=== PATIENT | female | born 1955 | race Caucasian/White ===

== ENCOUNTER 2024-11-11 10:58 | Emergency (ER) | payer MEDICARE, SELFPAY ==
[2024-11-11 11:03] VITALS: BP 177/85
--- NOTE | 2024-11-11 11:46 | ED.GENMED ---
History of Present Illness
General
Chief Complaint: Numbness
Source: patient
Exam Limitations: none
Time Seen by Provider: 11/11/24 11:38
History of Present Illness
History of Present Illness:
69-year-old female woke this morning feeling woozy. She typically feels woozy when she wakes up but was slightly worse. She then put her pulse ox on her finger and it had a inaccurate reading which showing unusual waveforms. This was followed by
tingling to the left hand. No chest pain no unusual palpitations or heart racing no syncope no headache or other neurologic symptoms. Currently at baseline.
Past History
Past History
ED Past Medical History: HTN, NIDDM, Other (Oxygen dependent) and Other (PMR)
ED Past Surgical History: Orthopedic and Other (Parathyroidectomy)
Review of Systems
Review of Systems
All Other Systems: Not applicable
Constitutional: Denies fever
Cardiac: Denies chest pain or syncope
ABD/GI: Reports no symptoms
Phy Exam
Physical Exam
Physical Exam:
GENERAL: Alert and oriented in no apparent distress
EYE: Orbits normal.
NECK: Supple
CARDIAC: Regular rate and rhythm without any obvious murmurs.
LUNGS: Clear breath sounds,normal
ABDOMEN: Soft, without focal tenderness or distention
NEUROLOGICAL: Alert and oriented , grossly non-focal. Upper extremity strength normal. Billing Department Supervisor normal. Light touch intact.
SKIN: Warm and dry, no rash or lesion, no discoloration, skin intact.
MUSCULOSKELETAL: No edema,no deformity.Good color. Good capillary refill. Good distal pulses.
PSYCH: Normal and appropriate interaction.
Course
Orders/Labs/Results
Orders:
Orders
11/11/24 11:45
IV Insert/Care/Rem.- Treatment PRN
Pulse Ox/cont/shift [RESP] Stat
Quantity: 1
11/11/24 11:46
Electrocardiogram (*1) Stat
Reason for Study: Other
Other Reason for Exam: chest pain
Cardiac Monitoring- Treatment ONCE
EKG- Treatment ONCE
CR Chest - 2 Views Urgent
Comment:
Reason For Exam: lightheaded. arm numbness
11/11/24 12:16
Basic Metabolic Panel Urgent
Complete Blood Count/With Diff Urgent
Troponin I Urgent
11/11/24 13:35
EKG- Treatment ONCE
11/11/24 15:00
Electrocardiogram (*1) Stat
Reason for Study: Other
Other Reason for Exam: chest pain
11/11/24 15:21
Troponin I Urgent
Abnormal Lab Results
11/11/24
12:16
RDW 14.8 H %
(11.5-14.5)
Absolute Neuts (auto) 6.6 H 10^3/uL
(1.4-6.5)
Absolute Monos (auto) 0.7 H 10^3/uL
(0.1-0.6)
Lymphocytes % 14.7 L %
(20.5-51.1)
BUN 22 H mg/dl
(7-17)
Glucose 108 H mg/dl
(70-99)
11/11/24 12:16
11/11/24 12:16
Vital Signs
Initial and Last Documented VS:
Initial Vital Signs
Temp Pulse Resp BP Pulse Ox
98.5 F 78 16 177/85 98
11/11/24 11:03 11/11/24 11:03 11/11/24 11:03 11/11/24 11:03 11/11/24 11:03
Last Documented Vital Signs
Temp Pulse Resp BP Pulse Ox
98.5 F 98 24 126/65 98
11/11/24 11:03 11/11/24 15:45 11/11/24 15:45 11/11/24 16:00 11/11/24 16:15
MDM/Problems Addressed
Differential Diagnosis Includes:
Patient is neurologically stable. Not describing obvious cardiac issues. I suspect her pulse ox was not picking up based on the an accurate waveform. Her exam is at baseline she is asymptomatic. Will check cardiac testing for completeness.
Nothing to support acute neurologic issue
*Radiology
Radiology exam reviewed: radiology read reviewed (Bibasilar scarring)
*Pulse Oximetry
Patient hypoxic: no
*Critical Care Note
Total Time (30-74mins, 75-104mins- exclusive of procedures): Not Applicable
Data Reviewed
Review of Other/Old Records Reveals: Other (Previous echo reviewed and stable)
Update Note
Update Note:
Repeat EKG normal sinus rhythm rate of 71. Poor R wave progression nonspecific changes unchanged EKG. Repeat troponin negative. Patient has remained asymptomatic. Discharged to follow-up
ED Attending Note
-
Portions of this chart may have been created with voice recognition software.� Occasional wrong word or��sound alike� substitutions may have occurred due to the inherent limitations of voice recognition software.
Discharge Plan
Departure
Patient Disposition: Home (Routine Discharge)
Date of Disposition: 11/11/24
Time of Disposition: 16:22
Patient with high blood pressure during this ER visit?: Yes
Discharge Problem:
Transient arm paresthesias, Transient pulse ox issues
Instructions: Paresthesia (DC), BLOOD PRESSURE
Referrals:
Braeden Amaral DO [Family Provider] - Follow up in 2-3 days
Activity Restrictions/Additional Instructions:
Return with any chest pain new shortness of breath fever cough or any other concerning symptoms
Interventions
Interventions:
*Risk Screen - Suicide Last Done: 11/11/24 11:03
*General Assessment Last Done: 11/11/24 14:00
*Neglect/Abuse Screening Last Done: 11/11/24 11:03
*ED- Fall Risk Assessment Last Done: 11/11/24 14:00
ED- Neurological Assessment Last Done: 11/11/24 12:16
Discharge Date and Time
Print Language: GEORGIAN
[2024-11-11 12:15] VITALS: BP 148/70
[2024-11-11 12:16] VITALS: BMI 38.9
[2024-11-11 12:31] LABS: % Basophils 0.3 % (0-2); % Eosinophils 3.9 % (0-6); % Immature Granulocytes 0.4 % (0-0.5); % Lymphocytes 14.7 % (20.5-51.1); % Monocytes 7.2 % (1.7-9.3); % Neutrophils 73.5 % (42.2-75.2); Absolute Eosinophils 0.4 10^3/uL (0-0.7); Absolute Lymphocytes 1.3 10^3/uL (1.2-3.4); Absolute Monocytes 0.7 10^3/uL (0.1-0.6); Absolute Neutrophils 6.6 10^3/uL (1.4-6.5); Hematocrit 37.5 % (37.0-47.0); Hemoglobin 12.4 g/dL (12.0-16.0); Mean Corp Hgb Conc. 33.1 g/dL (33.0-37.0); Mean Corpuscular Hgb 28.4 pg (27.0-31.0); Mean Platelet Volume 8.5 fL (7.4-10.4); Nucleated Red Blood Cells % 0 %; Platelet Count 239 10^3/uL (130-400); Red Blood Cell Count 4.36 10^6/uL (4.20-5.40); Red Cell Dist. Width 14.8 % (11.5-14.5)
[2024-11-11 12:47] LABS: Blood Urea Nitrogen 22 mg/dl (7-17); Calcium 9.2 mg/dl (8.4-10.2); Carbon Dioxide 29 mmol/L (22-30); Chloride 101 mmol/L (98-107); Estimated Creatinine Clearance 63 ml/min; Glucose 108 mg/dl (70-99); Sodium 139 mmol/L (135-145); eGFR > 60.00
[2024-11-11 12:58] LABS: Troponin I < 0.012 ng/ml
[2024-11-11 15:30] VITALS: BP 127/78
[2024-11-11 16:00] VITALS: BP 126/65
[2024-11-11 16:15] LABS: Troponin I < 0.012 ng/ml
== END 2024-11-11 16:35 | disposition home or self-care (01) ==
LOC: EMR 10:58
PROVIDERS: EMERGENCY PHYSICIAN Emergency Medicine; FAMILY PHYSICIAN Internal Medicine
DX: R20.2 Paresthesia of skin (principal); R20.0 Anesthesia of skin; R42 Dizziness and giddiness; E11.9 Type 2 diabetes mellitus without complications; I10 Essential (primary) hypertension; M35.3 Polymyalgia rheumatica; Z99.81 Dependence on supplemental oxygen
CPT/HCPCS: 99285; 94760; 71046; 80048; 84484; 85025; 93005